=== PATIENT | male | born 1970 | race Two or more races ===

== ENCOUNTER 2019-09-09 01:11 | Emergency (ER) | payer MEDICAID, OTHER ==
[~2019-09-09] VITALS: Ht 172.7 cm; Wt 74.8 kg
--- NOTE | 2019-09-09 01:28 | NUR ---
YANY FROM STREET. PT PULLED OVER TO CALL 911. TO ER BED 10. AAOX4. NO RESP DISTRESS, BREATHING EVEN AND UNLABORED. C/O NAUSEA AND VOMMITING. PER PT, @ 8:30PM HE TOOK IBUPROPHEN 400MG FOR TOOTHACHE ON AN EMPTY STOMACH. @ 10PM PT STARTED TO HAVE VOMMITING AND NAUSEA. PT REPORTED THAT HE HAD TO PULLOVER FROM DRIVING BECAUSE OF THE NASUEA AND VOMMITING. PT APPEARS ANXIOUS UPON ASSESSMENT. MD AT BEDSIDE FOR EVAL. AWAITING ORDERS
[2019-09-09] MEDS ORDERED: ONDANSETRON 4 MG TAB.RAPDIS SL ONE (01:30)
[2019-09-09] MEDS ORDERED: ONDANSETRON 4 MG TAB.RAPDIS ONE (01:33)
[2019-09-09 01:49] VITALS: BP 145/52
--- NOTE | 2019-09-09 02:24 | NUR ---
Patient discharged to home in stable condition. Written and verbal after care instructions given. Patient verbalizes understanding of instruction. Pt ambulatory with a steady gait
== END 2019-09-09 02:25 | disposition home or self-care (01) ==
LOC: ER 01:15
DX: R11.2 Nausea with vomiting, unspecified (principal); E66.9 Obesity, unspecified; Z68.25 Body mass index [BMI] 25.0-25.9, adult
CPT/HCPCS: 99283; Q0162